=== PATIENT | female | born 1930 | race Caucasian/White ===

== ENCOUNTER 2019-08-26 10:40 | Emergency (ER) | payer OTHER ==
[~2019-08-26] VITALS: Ht 162.6 cm; Wt 54.4 kg
[2019-08-26] MEDS ORDERED: GLIMEPIRIDE2 MG (11:46)
[2019-08-26] MEDS ORDERED: ROSUVASTATIN CAL5 MG (11:47)
[2019-08-26] MEDS ORDERED: ALLUPURINOL (11:47)
[2019-08-26] MEDS ORDERED: CARVEDILOL ER40 MG (11:48)
[2019-08-26] MEDS ORDERED: ACID REDUCER20 M1 (11:48)
[2019-08-26] MEDS ORDERED: CREOMULSIO20 MG/15 M (11:49)
== END 2019-08-26 15:40 | disposition home or self-care (01) ==
LOC: ER 10:40
DX: S90.46 Insect bite (nonvenomous) of toe (principal); L03.032 Cellulitis of left toe; L08.89 Other specified local infections of the skin and subcutaneous tissue; W57.XXXS Bitten or stung by nonvenomous insect and other nonvenomous arthropods, sequela

== ENCOUNTER 2019-08-30 13:46 | Outpatient (CLI) | payer OTHER ==
[~2019-08-30 13:46] MED LIST: ACID REDUCER20 M1; ALLUPURINOL; CARVEDILOL ER40 MG; CREOMULSIO20 MG/15 M; GLIMEPIRIDE2 MG; ROSUVASTATIN CAL5 MG
== END 2019-08-30 13:53 | disposition home or self-care (01) ==
LOC: LAB 13:46
DX: L03.116 Cellulitis of left lower limb (principal)